=== PATIENT | male | born 1980 | race African-American/Black ===

== ENCOUNTER 2019-02-14 08:02 | Emergency (ER) | payer BC ==
[~2019-02-14] VITALS: Ht 188 cm; Wt 10.0 kg
--- NOTE | 2019-02-14 08:06 | NUR ---
PT BIBSELF FOR NUMBNESS, BLURRED VISION, AND DRY LIPS; PT AAOX4, PT TO BED 9, NAD NOTED, PENDING MD PRADO
[2019-02-14] MEDS ORDERED: MAG HYDROX/AL HYDROX/SIMETH 30 ML UDC ONE (08:17)
[2019-02-14] MEDS ORDERED: LORAZEPAM 0.5 MG TABLET ONE (08:17)
[2019-02-14] MEDS ORDERED: LIDOCAINE VISCOUS 2% UD 15 ML UDC ONE (08:17)
[2019-02-14] MEDS ORDERED: MAG HYDROX/AL HYDROX/SIMETH 30 ML UDC PO ONE (08:30)
[2019-02-14] MEDS ORDERED: LORAZEPAM 1 MG TABLET PO ONE (08:30)
[2019-02-14] MEDS ORDERED: LIDOCAINE VISCOUS 2% UD 15 ML UDC MM ONE (08:30)
[2019-02-14 09:10] LABS: BASOPHILS % (AUTO) 0.4 % (0.0-2.0); EOSINOPHILS % (AUTO) 1.8 % (0.0-6.0); HEMATOCRIT 40 % (39-51); HEMOGLOBIN 13.7 g/dL (13.5-17.5); LYMPHOCYTES % (AUTO) 15.6 % (20.0-44.0); MEAN CORPUSCULAR HGB CONC 35 g/dl (31.0-36.0); MEAN CORPUSCULAR VOLUME 89 fL (80-96); MONOCYTES # (AUTO) 0.5 /CMM (0.1-1.30); NEUTROPHILS # (AUTO) 4.6 /CMM (1.8-8.9); NEUTROPHILS % (AUTO) 74.2 % (43.0-81.0); PLATELET COUNT (AUTO) 140 /CMM (150-450); RED BLOOD CELL COUNT(AUTO) 4.47 MIL/uL (4.5-6.0); WHITE BLOOD COUNT (AUTO) 6.2 K/uL (4.3-11.0)
[2019-02-14 09:16] LABS: CALCIUM, SERUM 8.8 mg/dL (8.5-10.1); CREATININE 1.1 mg/dL (0.6-1.3); POTASSIUM 3.4 mmol/L (3.5-5.1)
[2019-02-14 09:24] LABS: ALBUMIN 3.9 g/dL (3.4-5.0); BILIRUBIN,DIRECT 0.2 mg/dL (0.0-0.2); BILIRUBIN,TOTAL 1.4 mg/dL (0.2-1.0); TOTAL PROTEIN, SERUM 7.2 g/dL (6.4-8.2)
[2019-02-14 10:27] VITALS: BP 138/87
--- NOTE | 2019-02-14 10:29 | NUR ---
Patient discharged to home in stable condition. Written and verbal after care instructions given. Patient verbalizes understanding of instruction.
== END 2019-02-14 10:30 | disposition home or self-care (01) ==
LOC: ER 08:02
DX: J30.9 Allergic rhinitis, unspecified (principal); K21.9 Gastro-esophageal reflux disease without esophagitis; Z90.49 Acquired absence of other specified parts of digestive tract; Z88.8 Allergy status to other drugs, medicaments and biological substances
CPT/HCPCS: 36415; 80048-TC; 80076-TC; 83690-TC; 85025-TC

== ENCOUNTER 2019-09-13 12:59 | Emergency (ER) | payer BC, OTHER ==
[~2019-09-13] VITALS: Ht 182.9 cm; Wt 104.3 kg
[2019-09-13 13:02] VITALS: BP 127/74
== END 2019-09-13 13:50 | disposition home or self-care (01) ==
LOC: ER 12:59
DX: J32.9 Chronic sinusitis, unspecified (principal); K21.9 Gastro-esophageal reflux disease without esophagitis; Z90.49 Acquired absence of other specified parts of digestive tract; Z88.8 Allergy status to other drugs, medicaments and biological substances
CPT/HCPCS: 99283; J7030